=== PATIENT | male | born 1970 ===

== ENCOUNTER 2022-09-23 08:13 | Emergency (ER) | payer BC ==
[2022-09-23 09:22] LABS: ESTIMATED GFR 86 mL/min (>60)
[2022-09-23] MEDS ORDERED: Sodium Chloride 0.9% 1,000 ML IV SCH (09:30)
[2022-09-23 09:43] LABS: CORONAVIRUS COVID-19 NAA NEGATIVE (NEGATIVE)
== END 2022-09-23 10:40 | disposition home or self-care (01) ==
LOC: LB.ED 08:13
DX: R42 Dizziness and giddiness (principal); Z20.822 Contact with and (suspected) exposure to COVID-19
CPT/HCPCS: 0240U; 36415; 70450; 80053; 80307; 85025; 96360; 99284-25; J7030